=== PATIENT | female | born 1975 | race Caucasian/White ===

== ENCOUNTER 2025-05-01 10:10 | Emergency (ER) | payer SELFPAY ==
[~2025-05-01] VITALS: Ht 154.9 cm; Wt 63.0 kg
[2025-05-01 10:16] VITALS: O2SAT 99
[2025-05-01 10:18] VITALS: BP 129/105; PULSE 105; RESP 16; TEMP 37; O2SAT 99
[2025-05-01 11:15] LABS: BASOPHILS % 1.0 % (0.0-2.0); EOSINOPHILS % 0.2 % (0.0-5.0); HEMATOCRIT. 43.1 % (36.0-48.0); HEMOGLOBIN. 14.5 g/dL (12.0-16.0); LYMPHOCYTES % 14.3 % (20.0-50.0); MEAN PLATELET VOLUME 7.4 fl (7.4-10.4); MONOCYTES % 7.0 % (2.0-8.0); NEUTROPHILS % 77.5 % (40.0-76.0); PLATELET 415 x1000/uL (130-400); RED BLOOD CELL COUNT 4.36 mill/uL (4.2-5.4); RED CELL DISTRIBUTION WIDTH 13.6 % (11.6-14.6)
[2025-05-01 11:33] LABS: CREATININE 0.5 mg/dL (0.6-1.0)
[2025-05-01 11:34] LABS: UREA NITROGEN BLOOD < 5 mg/dL (9-23)
== END 2025-05-01 19:30 | disposition left against medical advice (07) ==
LOC: ER 10:10
DX: R10.9 Unspecified abdominal pain (principal); Z53.21 Procedure and treatment not carried out due to patient leaving prior to being seen by health care provider
CPT/HCPCS: 36415; 80048; 85025; 93005; 99281